=== PATIENT | male | born 1970 | race Caucasian/White ===

== ENCOUNTER 2021-03-16 18:27 | Emergency (ER) | payer OTHER | END 2021-03-16 20:31 | disposition home or self-care (01) | LOC: FER 18:27 | DX: S61.412A Laceration without foreign body of left hand, initial encounter (principal); E78.5 Hyperlipidemia, unspecified; Z88.0 Allergy status to penicillin; Z79.899 Other long term (current) drug therapy; W20.8XXA Other cause of strike by thrown, projected or falling object, initial encounter ==

== ENCOUNTER 2021-08-12 12:37 | Emergency (ER) | payer OTHER | END 2021-08-12 13:19 | disposition home or self-care (01) | LOC: FER 12:37 | DX: Z53.21 Procedure and treatment not carried out due to patient leaving prior to being seen by health care provider (principal) ==